=== PATIENT | female | born 1995 | race Caucasian/White ===

== ENCOUNTER 2020-11-23 16:17 | Emergency (ER) | payer OTHER, SELFPAY ==
[2020-11-23 16:21] VITALS: BP 134/71; PULSE 73; RESP 18; TEMP 35.8; O2SAT 99; BMI 28.5
--- NOTE | 2020-11-23 17:25 | ED.GENADULT ---
HPI - General Adult General Chief complaint: General Medical Stated complaint: covid exposed Time Seen by Provider: 11/23/20 17:25 History of Present Illness HPI narrative: Patient presents as she had a close exposure to someone with COVID and had a mild headache this morning which is now gone and wants to be checked No nausea vomiting no fever chills no cough no shortness of breath Related Data Allergies Allergy/AdvReac Type Severity Reaction Status Date / Time No Known Allergies Allergy Unverified 05/15/20 19:16 [No Known Allergies*] Review of Systems Review of Systems: Positive for headache Negatives are no fever no chills no dizziness no weakness no fatigue no body aches no numbness no weakness no chest pain no shortness of breath no cough no sputum no abdominal pain no nausea vomiting no rash no numbness or weakness PMFSH Past Medical History Source: nursing notes reviewed Social History Social History Advance Directives: No Advance Directives Information Provided: No Physical Exam Vital Signs: Vital Signs: Last Vital Signs Temp 96.4 F L 11/23/20 16:21 Pulse 73 11/23/20 16:21 Resp 18 11/23/20 16:21 BP 134/71 11/23/20 16:21 Pulse Ox 99 11/23/20 16:21 Body Mass Index 28.5 General appearance comfortable relax cheerful no acute distress The eyes no discharge no redness The neck is supple The chest is clear to auscultation bilaterally full symmetric equal breath sounds Heart rate and rhythm regular no murmur Abdomen soft nontender Extremities for injury motion x4 Skin no rash Neuro no focal deficit Course Course Course Narrative: COVID test was negative but patient is warned that many patients with COVID well have an initial negative test so she should wear a mask and assumes she may have COVID Well-appearing patient is discharged Medical Decision Making Lab Data Labs: Lab Results 11/23/20 Range/Units 17:52 COVID-19 ([facility]) Negative (Negative) COVID-19 Clin Com See Note Discharge Plan Discharge Clinical Impression: Exposure to 2019-nCoV Patient Disposition: Home, Self-Care Additional Instructions: Your COVID test was negative, but since you have had very close exposure to someone who has COVID you should wear a mask and keep the distance from people Return any time any concerns Interventions: ED Discharge Assessment Last Done: 11/23/20 19:27 Discharge Date/Time: 11/23/20 19:27
[2020-11-23 18:37] LABS: COVID-19 Test Negative (Negative); IDNOW Serial# 9DD0AD1C
== END 2020-11-23 19:27 | disposition home or self-care (01) ==
PROVIDERS: Physician Assistant Medical; Emergency Provider Emergency Medicine Emergency Medical Services
DX: R51.9 Headache, unspecified (principal); Z20.822 Contact with and (suspected) exposure to COVID-19
CPT/HCPCS: 36415; 87635; 99283